=== PATIENT | female | born 1950 | race African-American/Black ===

== ENCOUNTER → 2018-11-05 | Outpatient (REF) | payer MEDICARE ==
[~2018-11-05] MED LIST: CALCIUM600 M2 OR; CLARITHROMYC500 M1 PO; ESTRACE VAG0.1 MG/GM VA
== END | disposition home or self-care (01) ==
LOC: DI 10:13
PROVIDERS: ATTEND Internal Medicine
DX: R05 Cough (principal)

== ENCOUNTER → 2018-11-06 | Outpatient (REF) | payer MEDICARE | END | disposition home or self-care (01) | LOC: RT 10:03 | PROVIDERS: ATTEND Internal Medicine | DX: R05 Cough (principal) ==

== ENCOUNTER → 2018-11-20 | Outpatient (REF) | payer MEDICARE | END | disposition home or self-care (01) | LOC: RT 11-13 12:30 | PROVIDERS: ATTEND Internal Medicine | DX: R05 Cough (principal) ==